=== PATIENT | female | born 1970 | race Caucasian/White ===

== ENCOUNTER 2020-08-20 13:01 | Observation (INO) ==
[2020-08-20] MEDS ORDERED: NITROGLYCERIN SL 0.4 MG TABLET SL ONE (14:48)
[2020-08-20] MEDS ORDERED: ASPIRIN 325 MG TABLET ONE (14:48)
[2020-08-20] MEDS ORDERED: ASPIRIN 325 MG TABLET PO STA (14:48)
[2020-08-20] MEDS ORDERED: NITROGLYCERIN SL 0.4 MG TABLET SL PRN (14:48)
[2020-08-20 14:54] LABS: Basophils # 0.1 10*3/uL (0.0-0.2); Basophils % 1.1 % (0.0-0.8); Eosinophils # 0.2 10*3/uL (0.0-0.87); Eosinophils % 2.7 % (0.00-10.9); Hematocrit 42.8 VOL% (35.7-47.0); Immature Granulocytes % 0.3 %; Immature Granulocytes Absolute 0.02 #; Lymphocytes # 3.3 10*3/uL (1.4-4.0); Lymphocytes % 44.3 % (21.3-54.2); Mean Corpuscular HGB Conc 32.7 GM/DL (32-36); Mean Corpuscular Volume 89.2 FL (87-102); Mean Platelet Volume 10.6 FL (9.6-12.0); Monocytes % 6.1 % (1.7-12.7); Neutrophils % 45.5 % (38.7-73.9); Platelet Count 392 T/CUMM (130-400); Red Cell Distribution Width 14.3 % (9.3-17.3); White Blood Count 7.4 T/CUMM (4-12)
[2020-08-20 15:08] LABS: Albumin 3.8 G/DL (3.4-5.0); Bilirubin,Total 0.4 MG/DL (0.2-1.0); Calcium 9.3 MG/DL (8.5-10.1); Osmolality,Calculated 274.7 MOS/KG (273-304); Potassium 3.9 MMOL/L (3.5-5.1); Total Protein 8.6 G/DL (6.4-8.3)
[2020-08-20 15:22] LABS: INR 0.9; PT Patient Result 10.2 SECS (9.8-11.9)
[2020-08-20] MEDS ORDERED: LABETALOL 20 MG/4 ML SYRINGE IV ONE (15:54)
[2020-08-20] MEDS ORDERED: GLUCAGON 1 MG VIAL IM PRN ×2 (16:53)
[2020-08-20] MEDS ORDERED: DEXTROSE 50% 25 GM/50 ML VIAL IV PRN ×2 (16:53)
[2020-08-20] MEDS ORDERED: ONDANSETRON 4 MG/2 ML VIAL IV PRN (16:53)
[2020-08-20 17:56] LABS: Risk Ratio 2.19; VLDL CHOLESTEROL 19.2 MG/DL
[2020-08-20] MEDS ORDERED: ENOXAPARIN 40 MG/0.4 ML SYRINGE SUBCUT SCH (18:00)
[2020-08-20] MEDS ORDERED: INFLUENZA VIRUS VACCINE 0.5 ML SYRINGE IM ONE (18:09)
[2020-08-20] MEDS ORDERED: PNEUMOCOCCAL VACCINE (13 VALENT) 0.5 ML SYRINGE IM ONE (18:12)
[2020-08-20 18:27] LABS: Thyroid Stimulating Hormone 0.826 uIU/ml (0.358-3.74)
[2020-08-20] MEDS: ACETAMINOPHEN 325 MG TABLET PO PRN (20:27)
[2020-08-21 06:24] LABS: Calcium 8.4 MG/DL (8.5-10.1); Osmolality,Calculated 277.4 MOS/KG (273-304)
[2020-08-21] MEDS: ACETAMINOPHEN 325 MG TABLET PO PRN (07:40)
[2020-08-21] MEDS ORDERED: PANTOPRAZOLE 40 MG TABLET PO SCH (09:00)
[2020-08-21] MEDS ORDERED: THYROID 60 MG TABLET PO SCH (09:00)
[2020-08-21] MEDS ORDERED: POTASSIUM CHLORIDE 20 MEQ TABLET PO SCH (09:00)
[2020-08-21] MEDS ORDERED: CHLORTHALIDONE 25 MG TABLET PO SCH (09:00)
[2020-08-21] MEDS ORDERED: traMADol 50 MG TABLET PO ONE (09:53)
[2020-08-21 12:06] VITALS: BP 133/88
[2020-08-22] MEDS ORDERED: ASPIRIN EC 81 MG TABLET PO SCH (09:00)
== END 2020-08-21 13:48 | disposition home or self-care (01) ==
LOC: N.ED 13:01 → N.EDINP 13:01 → N.TELEN 17:16
PROVIDERS: ADMIT Internal Medicine; ATTEND Internal Medicine